=== PATIENT | male | born 1945 | race Caucasian/White ===

== ENCOUNTER 2021-03-16 20:30 | Observation (INO) ==
[2021-03-16 21:00] LABS: Basophils # 0.1 K/mcL (0.0-0.2); Basophils % 0.7 %; Eosinophils # 1.1 K/mcL (0.0-0.6); Eosinophils % 10.9 %; Hematocrit 50.1 % (37.5-50.1); Hemoglobin 16.5 g/dL (12.9-16.9); Immature Granulocytes % 0.4 % (0-4); Lymphocytes % 18.9 %; Mean Corpuscular HGB Conc 32.9 g/dL (31.6-35.5); Mean Corpuscular Hemoglobin 29.4 pg (28.0-33.3); Mean Corpuscular Volume 89.1 fL (83.0-100.0); Mean Platelet Volume 9.4 fL (9.4-12.4); Monocytes # 0.9 K/mcL (0.0-1.3); Monocytes % 8.3 %; Neutrophils # 6.3 K/mcL (1.6-8.9); Platelet Count 274 K/mcL (140-400); Red Blood Count 5.62 M/mcL (4.19-5.50); Red Cell Distribution Width 13.4 % (11.5-14.5); Segmented Neutrophils % 60.8 %; White Blood Count 10.4 K/mcL (4.3-11.1)
[2021-03-16 21:21] LABS: BUN/Creatinine Ratio 18 (6-26); Blood Urea Nitrogen 27 mg/dL (8-23); Calcium 10.1 mg/dL (8.6-10.3); Carbon Dioxide 28 mEq/L (23-29); Chloride 101 mEq/L (98-107); Glucose 110 mg/dL (70-105); Osmolality,Calculated 288 (280-300); Potassium 4.4 mEq/L (3.5-5.1); Sodium 136 mEq/L (136-145); Troponin I < 0.03 ng/mL (< 0.04); eGFR For African Americans 56 (> 60); eGFR For Non-African Americans 46 (> 60)
[2021-03-16] MEDS ORDERED: Aspirin 81 MG TAB.CHEW PO ONE (22:45)
[2021-03-16] MEDS ORDERED: Nitroglycerin 1 INCH/GM PACKET TP ONE (23:54)
[2021-03-17] MEDS ORDERED: Morphine Sulfate 2 MG/ML SYRINGE IVP PRN (01:50)
[2021-03-17] MEDS ORDERED: Perflutren Lipid Microsphere 1.3 ML in 0.9 % Sodium Chloride 8.7 ML IVP PRN (01:51)
[2021-03-17] MEDS ORDERED: Naloxone 0.4 MG/ML INJ IVP PRN (01:52)
[2021-03-17] MEDS ORDERED: Acetaminophen 325 MG TABLET PO PRN (01:52)
[2021-03-17] MEDS ORDERED: Ondansetron 4 MG/2 ML VIAL IVP PRN (01:52)
[2021-03-17 04:41] LABS: Hematocrit 45.7 % (37.5-50.1); Hemoglobin 15.5 g/dL (12.9-16.9); Mean Corpuscular HGB Conc 33.9 g/dL (31.6-35.5); Mean Corpuscular Hemoglobin 30.3 pg (28.0-33.3); Mean Corpuscular Volume 89.3 fL (83.0-100.0); Mean Platelet Volume 9.7 fL (9.4-12.4); Platelet Count 250 K/mcL (140-400); Red Blood Count 5.12 M/mcL (4.19-5.50); Red Cell Distribution Width 13.4 % (11.5-14.5); White Blood Count 9.6 K/mcL (4.3-11.1)
[2021-03-17 04:50] LABS: Prothrombin Time 12.1 Seconds (9.4-12.1)
[2021-03-17 04:53] LABS: Activated Partial Thrombo Time 26.8 Seconds (26.0-36.0)
[2021-03-17 05:05] LABS: BUN/Creatinine Ratio 20 (6-26); Blood Urea Nitrogen 25 mg/dL (8-23); Calcium 9.7 mg/dL (8.6-10.3); Carbon Dioxide 27 mEq/L (23-29); Chloride 103 mEq/L (98-107); Cholesterol 156 mg/dL (< 200); Glucose 124 mg/dL (70-105); HDL Cholesterol 39 mg/dL (40-59); LDL Cholesterol,Calculated 80 mg/dL (< 100); Magnesium 2.1 mg/dL (1.6-2.6); Osmolality,Calculated 292 (280-300); Potassium 4.7 mEq/L (3.5-5.1); Sodium 138 mEq/L (136-145); Triglycerides 183 mg/dL (< 150); Troponin I < 0.03 ng/mL (< 0.04); eGFR For African Americans > 60 (> 60); eGFR For Non-African Americans 55 (> 60)
[2021-03-17 05:17] LABS: Thyroid Stimulating Hormone 2.274 mcIU/mL (0.340-5.600)
[2021-03-17] MEDS ORDERED: Regadenoson 0.4 MG/5 ML SYRINGE IVP ONE (06:03)
[2021-03-17] MEDS: Famotidine 20 MG/2 ML VIAL IVP SCH ×2 (06:57→17:45)
[2021-03-17] MEDS: *HR* Heparin 5,000 UNIT/ML VIAL SQ SCH ×3 (06:58→20:40)
[2021-03-17] MEDS: Aspirin Enteric Coated 81 MG Tablet PO SCH (08:37)
[2021-03-17] MEDS ORDERED: Temazepam 15 MG CAPSULE PO SCH (21:00)
[2021-03-18] MEDS ORDERED: Regadenoson 0.4 MG/5 ML SYRINGE IVP ONE (06:17)
[2021-03-18] MEDS: *HR* Heparin 5,000 UNIT/ML VIAL SQ SCH ×2 (06:24→17:35)
[2021-03-18] MEDS: Famotidine 20 MG/2 ML VIAL IVP SCH (06:24)
[2021-03-18] MEDS ORDERED: lisinopriL 20 MG TABLET PO SCH (09:00)
[2021-03-18] MEDS: Aspirin Enteric Coated 81 MG Tablet PO SCH (09:53)
[2021-03-18] MEDS ORDERED: *HR* Heparin 10,000 UNIT/10 ML VIAL ONE (13:28)
[2021-03-18] MEDS ORDERED: Heparin 1,000 UNITS/500 mL 500 ML ONE (13:28)
[2021-03-18] MEDS ORDERED: 0.9 % Sodium Chloride 1,000 ML ONE ×2 (13:28→13:31)
[2021-03-18] MEDS ORDERED: ISOVUE-370 200 ML INFUS..BTL ONE (13:29)
[2021-03-18] MEDS ORDERED: Nitroglycerin 1,000 MCG/5 ML VIAL IV ONE (13:29)
[2021-03-18] MEDS ORDERED: *HR* Midazolam HCl 2 MG/2 ML VIAL ONE (14:04)
[2021-03-18] MEDS ORDERED: *HR* FentaNYL (PF) 100 MCG/2 ML VIAL ONE (14:05)
[2021-03-18] MEDS ORDERED: 0.9 % Sodium Chloride 1,000 ML IVC SCH (14:30)
[2021-03-18 19:42] VITALS: BP 113/77
== END 2021-03-18 19:04 | disposition home or self-care (01) ==
LOC: CDU 20:30 → EMEROOARM 20:30 → SUATTDRO 03-17 01:04 → CDU 03-17 01:56 → 3NENU 03-17 19:17
PROVIDERS: ADMIT Internal Medicine; ATTEND Family Medicine